=== PATIENT | male | born 1985 | race Caucasian/White ===

== ENCOUNTER 2019-05-08 17:39 | Emergency (ER) | payer OTHER, SELFPAY ==
[2019-05-08 18:35] VITALS: BP 118/77; PULSE 58; RESP 18; TEMP 36.9; O2SAT 100; BMI 26.9
--- NOTE | 2019-05-08 18:49 | ED_ITS ---
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 The patient has received the hepatitis vaccines. He has been counseled and does not want the antiviral medications for HIV. The patient has been advised that this is a low probability wrist because the needle was solid, but not without risk. The patient understands the risks and has declined the antiviral. He has been advised to follow-up with his [employer] for further evaluation and monitoring. Patient History Social History Smoking Status: Never smoker Smoking Status: Never smoker alcohol intake frequency: a few times a month Substance Use Type: does not use Exam Narrative Exam Narrative: PHYSICAL EXAM: CONSTITUTIONAL: Awake, Alert, Oriented, Coherent, Cooperative in NAD. Does not appear toxic or ill. EENT: PERRL, FROM of eyes, LUNGS: Clear with symmetrical breath sounds without respiratory distress HEART: Normal heart tones, regular rhythm and rate without murmur. EXTREMITIES: Puncture wound to the pulp of his left thumb. No active bleeding. 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 He punctured his left thumb with a 30 gauge solid needle. The patient has received his hepatitis vaccine. Hepatitis studies have been drawn on the patient. He is being discharged and will follow up with his [employer] physician. Orders Ordered: ED Orders 05/08/19 19:15 Alanine Aminotransferase Stat HIV 1 & 2 Ab/Ag 4th Gen Combo Stat Hepatitis C Virus Antibody Stat Vital Signs Vital signs: Vital Signs - 8 hr 05/08/19 18:35 Temperature 98.4 F Pulse Rate 58 L Respiratory Rate 18 Blood Pressure 118/77 Pulse Oximetry 100 Medical Decision Making Lab Data Labs: Lab Results 05/08/19 05/08/19 Range/Units 19:15 19:15 ALT 13 (<50) IU/L Hepatitis C Antibody Negative (NEGATIVE) s/c HIV 1&2 Ab/P24 Ag 4thGn Negative (NEGATIVE) Discharge Plan Departure Patient Disposition: Home Clinical Impression: Exposure to blood or body fluid Discharge Date/Time: 05/08/19 19:10 Instructions: DI for Accidental Exposure to Body Fluids Activity Restrictions/Additional Instructions: Follow-up with your company's workmen Comp physician/Employee Health to receive the results of your blood studies.
[2019-05-08 19:34] LABS: Alanine Aminotransferase 13 IU/L (<50)
[2019-05-08 20:16] LABS: HIV 1 & 2 Ab/Ag 4th Gen Combo NEGATIVE (NEGATIVE)
[2019-05-08 20:23] LABS: Hep C Virus Ab w/Reflex Quant NEGATIVE s/c (NEGATIVE)
[2019-05-12 15:29] LABS: Hepatitis B Surf Ab Qualitativ Reactive (Nonreactive)
== END 2019-05-08 19:10 | disposition home or self-care (01) ==
PROVIDERS: Emergency Provider Emergency Medicine
DX: Z77.21 Contact with and (suspected) exposure to potentially hazardous body fluids (principal); Y99.0 Civilian activity done for income or pay
CPT/HCPCS: 36415; 84460; 86706; 86803; 87389; 99283